=== PATIENT | male | born 1965 | race Caucasian/White ===

== ENCOUNTER 2019-10-25 11:09 | Emergency (ER) | payer OTHER ==
[~2019-10-25] VITALS: Ht 172.7 cm; Wt 127.8 kg
--- NOTE | 2019-10-25 11:32 | NUR ---
DR ESPOSITO BS FOR EXAM. PT C/O SEVERE ABD PAIN. LAST URINE OUTPUT APPROX 15 HRS AGO. PALOMINO PRESENT 16FR - WAS PLACED 1 MONTH AGO. VO ERP TO CHANGE OUT PALOMINO
--- NOTE | 2019-10-25 11:36 | NUR ---
REFUSING PAIN MED OFFER
--- NOTE | 2019-10-25 12:24 | NUR ---
EXISTING PALOMINO DC'D. NEW PALOMINO INSERTED. APPROXIMATELY 800ML CLOUDY, SLIGHTLY BLOOD TINGED URINE RETURNED. SPECIMEN COLLECTED; WILL BE WALKED TO LAB. PT REPORTS GREAT IMPROVEMENT IN PAIN LEVEL.
[2019-10-25 12:32] LABS: CULTURE INDICATED? YES; MICROSCOPIC INDICATED
[2019-10-25] MEDS ORDERED: CIPROFLOXACIN 500 MG TABLET PO ONE (14:00)
[2019-10-25] MEDS ORDERED: CIPROFLOXACIN 500 MG TABLET ONE (14:01)
[2019-10-25] MEDS ORDERED: ATENOLOL (14:06)
[2019-10-25] MEDS ORDERED: LIPITOR (14:06)
[2019-10-25] MEDS ORDERED: TAMS-11 PO (14:06)
[2019-10-25 15:09] VITALS: BP 150/99
--- NOTE | 2019-10-25 15:09 | NUR ---
PT C/O INTERMITTENT INTENSE FEELING OF NEED TO VOID, ACCOMPANIED BY SHARP BLADDER PRESSURE. WORSENS W/ MOVEMENT. PALOMINO DRAINING BLOOD-TINGED CLOUDY URINE. PT COMPLAINT DISCUSSED W/ DR GRANT (DR ESPOSITO GONE FOR THE DAY), PAIN MED CAN BE ORDER PER PT PREFERENCE. PT REFUSED TYLENOL, IBUPROFEN; WANTS "THE STRONGEST POSSIBLE".
--- NOTE | 2019-10-25 15:21 | NUR ---
LEG BAG USE DISCUSSED W/ PT. COLLECTION BAG REPLACED W/ LEG BAG. ADDITIONAL LEG BAG PROVIDED - PT STATES HE DOESN'T WANT THE INITIAL COLLECTION BAG. WILL DISCUSS PAIN MED W/ DR GRANT.
[2019-10-25] MEDS ORDERED: OXYcodone/APAP 5/325MG TABLET PO ONE (16:00)
--- NOTE | 2019-10-25 16:00 | NUR ---
PT WALKING IN CARBONE, FULLY DRESSED. ASKED PT TO RETURN TO ROOM.
[2019-10-25] MEDS ORDERED: OXYcodone/APAP 5/325MG TABLET ONE (16:04)
--- NOTE | 2019-10-25 16:11 | NUR ---
PERCOCET GIVEN PER EMAR. PT AMBULATORY TO DC DESK W/OUT INCIDENT; GAIT STEADY.
--- NOTE | 2019-10-28 17:42 | NUR ---
THROUGH PUT RN: RECEIVED CHART BACK FOR REVIEW FROM ED MD, FINAL POSITIVE, NEEDS RX ADD SEPTRA DX BID 7 DAYS. SPOKE TO PT ON PHONE NUMBER LISTED FOR PT, PT REQUESTING MEDICATION FAXED TO [facility] IN [place], [place] FAX #[phone]. PT NOTIFIED THAT PHARMACY RECEIVED FAX.
== END 2019-10-25 16:13 | disposition home or self-care (01) ==
LOC: ED 16:07
DX: N40.1 Benign prostatic hyperplasia with lower urinary tract symptoms (principal); N30.01 Acute cystitis with hematuria; R33.8 Other retention of urine
CPT/HCPCS: 51702; 81001; 87077; 87086; 87147; 87186; 99284